=== PATIENT | female | born 2000 | race Hispanic/Latino ===

== ENCOUNTER 2021-03-25 21:17 | Emergency (ER) | payer OTHER, SELFPAY ==
[2021-03-25] MEDS ORDERED: Ibuprofen 200 MG TAB ONE (22:02)
[2021-03-25] MEDS ORDERED: Acetaminophen 325 MG TAB ONE (22:02)
== END 2021-03-25 22:14 | disposition home or self-care (01) ==
LOC: CSHERS 21:17
DX: M79.602 Pain in left arm (principal); M54.5 Low back pain; M79.605 Pain in left leg; V89.2XXA Person injured in unspecified motor-vehicle accident, traffic, initial encounter
CPT/HCPCS: 99283